=== PATIENT | male | born 1990 | race African-American/Black ===

== ENCOUNTER 2016-06-12 22:39 | Emergency (ER) | payer SELFPAY ==
[~2016-06-12] VITALS: Ht 182.9 cm; Wt 70.0 kg
[2016-06-12 22:43] VITALS: BP 128/90; PULSE 114; RESP 14; TEMP 98.5; O2SAT 96
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
[2016-06-12] MEDS ORDERED: TETANUS/DIPHTHERIA TOXOID ADULT 0.5 ML VIAL IM ONE (23:30)
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
[2016-06-13] MEDS ORDERED: AMOX875T PO (00:51)
== END 2016-06-13 01:04 | disposition home or self-care (01) ==
LOC: NEPK 22:39
DX: S06.300A Unspecified focal traumatic brain injury without loss of consciousness, initial encounter (principal); S02.5XXA Fracture of tooth (traumatic), initial encounter for closed fracture; S00.81XA Abrasion of other part of head, initial encounter; M79.601 Pain in right arm; M79.602 Pain in left arm; M54.2 Cervicalgia; Z23 Encounter for immunization; Y04.2XXA Assault by strike against or bumped into by another person, initial encounter
CPT/HCPCS: 70450; 70486; 72125; 90471; 90714

== ENCOUNTER 2016-10-02 21:44 | Emergency (ER) | payer SELFPAY ==
[~2016-10-02] VITALS: Ht 182.9 cm; Wt 69.7 kg
[~2016-10-02 21:44] MED LIST: AMOX875T PO
[2016-10-02 21:47] VITALS: BP 124/83; PULSE 96; RESP 14; TEMP 99.2; O2SAT 100
--- NOTE | 2016-10-02 22:49 | PD ---
Physical Exam Date Seen by Provider: Oct 02, 2016 Time Seen by Provider: 22:47 Narrative 26 yo male here for left eye stye. Has had this for 4 days. Eyelid is swollen. No injuries. Crusties noted. No fevers. Drainage. Tender. Vitals are stable in triage. Awaiting bed placement. Data Data Last Documented VS Vital Signs Date Time Temp Pulse Resp B/P Pulse Ox O2 Delivery O2 Flow Rate FiO2 10/02/16 21:47 99.2 96 14 124/83 100 Room Air [facility] Medical Record Reviewed: Yes Supervised Visit with REINA: Lion David Oct 02, 2016 22:49
--- NOTE | 2016-10-02 23:49 | PD ---
HPI Chief Complaint: Eye Problems/Injury Time Seen by Provider: 23:43 Travel History International Travel<30 days: No Contact w/Intl Traveler<30days: No Traveled to known affect area: No History of Present Illness HPI Patient is a 26-year-old male presents emergency department for evaluation of a sty of his left eye gradually worsening over the past few days and now spreading to his right eye. Denies any cough congestion runny nose. States feels itchy and burning. PFSH Past Medical History Medical History: Denies Significant Hx Diminished Hearing: No Immunizations Current: Yes Tetanus Vaccination: < 5 Years Influenza Vaccination: No Past Surgical History Surgical History: No Previous Surgery Social History Alcohol Use: Yes (1-2 every few days) Tobacco Use: Yes Substance Use: No Allergies-Medications (Allergen,Severity, Reaction): Coded Allergies: No Known Allergies (Verified , 06/12/16) Reported Meds & Prescriptions Reported Meds & Active Scripts Active Erythromycin Opth Oint 5 Mg/Gm Oint 1 Applic EACH EYE BID 10 Days Review of Systems Except as stated in HPI: all other systems reviewed are Neg Physical Exam Narrative GENERAL: Well-nourished, well-developed patient. SKIN: Focused skin assessment warm/dry. HEAD: Normocephalic. EYES: No scleral icterus. Small amount injection to the right conjunctiva, left conjunctiva more significantly injected, no purulent discharge seen. No cell nor flare bilaterally. No fluroscein uptake bilaterally. No stye visible , appears to be more conjunctival swelling and irritation. NECK: Supple, trachea midline. No JVD or lymphadenopathy. CARDIOVASCULAR: Regular rate and rhythm without murmurs, gallops, or rubs. RESPIRATORY: Breath sounds equal bilaterally. No accessory muscle use. GASTROINTESTINAL: Abdomen soft, non-tender, nondistended. MUSCULOSKELETAL: No cyanosis, or edema. BACK: Nontender without obvious deformity. No CVA tenderness. Data Data Last Documented VS Vital Signs Date Time Temp Pulse Resp B/P Pulse Ox O2 Delivery O2 Flow Rate FiO2 10/02/16 21:47 99.2 96 14 124/83 100 Room Air Orders Proparacaine 0.5% Opth Soln (Alcaine 0.5 (10/03/16 00:00) MDM Medical Decision Making Medical Screen Exam Complete: Yes Emergency Medical Condition: Yes Differential Diagnosis Stye, conjunctivitis, viral conjunctivitis, bacterial conjunctivitis, allergic conjunctivitis Narrative Course Patient roomed emerged Department, forcing staining showed no uptake bilaterally. Clinically this appears to be more pink eye. Likely bacteria. Highly doubt severe infection such as endophthalmitis or chlamydia or gonorrheal infection. Discussed symptomatic management home antibiotic use to return to ED criteria. Diagnosis Primary Impression: Conjunctivitis Qualified Code: H10.33 - Acute bacterial conjunctivitis of both eyes Med/Other Pt SpecificInfo: Prescription(s) given Scripts Erythromycin Opth Oint 5 Mg/Gm Oint1 Applic EACH EYE BID 10 Days Ref 0 Prov:Tim Dorsey MD 10/03/16 Disposition: DISCHARGE HOME Condition: Stable Tim Dorsey MD Oct 02, 2016 23:49
[2016-10-03] MEDS ORDERED: PROPARACAINE HCL 0.5% OPHT SOLN 15 ML BTL EACH EYE ONE
[2016-10-03] MEDS ORDERED: ERYTOIN10 EACH EYE (00:19)
== END 2016-10-03 00:51 | disposition home or self-care (01) ==
LOC: NEPD 21:44
DX: H10.33 Unspecified acute conjunctivitis, bilateral (principal)
CPT/HCPCS: 99283